=== PATIENT | male | born 1995 | race Asian ===

== ENCOUNTER 2018-09-01 10:20 | Outpatient (RCR) | payer OTHER ==
[~2018-09-01 10:20] MED LIST: LORA10TA76 PO
== END 2018-11-01 | disposition home or self-care (01) ==
LOC: CARD 10:20
PROVIDERS: ATTEND Internal Medicine Cardiovascular Disease
DX: R55 Syncope and collapse (principal); R00.2 Palpitations; R00.0 Tachycardia, unspecified; Z72.0 Tobacco use
CPT/HCPCS: 93270